=== PATIENT | female | born 1985 | race Caucasian/White ===

== ENCOUNTER 2021-10-06 18:11 | Emergency (ER) | payer MEDICAID, SELFPAY ==
--- NOTE | 2021-10-06 18:20 | ED_ITS ---
HPI - Psych General Chief Complaint: Psychiatric Symptoms <Tramaine Galvez MD - Last Filed: 10/06/21 23:17> Stated Complaint: ETOH, SI STATEMENTS, RESTRAINED PER EMS <Tramaine Galvez MD - Last Filed: 10/06/21 23:17> Time Seen by Provider: 10/06/21 18:20 <Tramaine Galvez MD - Last Filed: 10/06/21 23:17> Source: patient, EMS and police <Tramaine Galvez MD - Last Filed: 10/06/21 23:17> Mode of arrival: EMS <Tramaine Galvez MD - Last Filed: 10/06/21 23:17> Limitations: other (intoxication) <Tramaine Galvez MD - Last Filed: 10/06/21 23:17> History of Present Illness HPI Narrative: Police states she has been drinking heavily and threatening suicide. Last week had prepared to hang herself but did not go through it. patient states she is an alcoholic and goes into withdrawal <Tramaine Galvez MD - Last Filed: 10/06/21 23:17> MD complaint: suicidal ideation <Tramaine Galvez MD - Last Filed: 10/06/21 23:17> Onset (ago): week(s) <Tramaine Galvez MD - Last Filed: 10/06/21 23:17> Duration: constant <Tramaine Galvez MD - Last Filed: 10/06/21 23:17> History of same: Yes <Tramaine Galvez MD - Last Filed: 10/06/21 23:17> Exacerbating factors: alcohol <Tramaine Galvez MD - Last Filed: 10/06/21 23:17> Context: recent alcohol abuse <Tramaine Galvez MD - Last Filed: 10/06/21 23:17> Associated psychiatric symptoms: depression and suicidal ideation <Tramaine Galvez MD - Last Filed: 10/06/21 23:17> Related Data Home Medications: Previous Rx's Medication Instructions Recorded chlordiazepoxide HCl 25 mg capsule 25 mg PO Q8H PRN #6 cap 10/07/21 <Tramaine Galvez MD - Last Filed: 10/06/21 23:17> Allergies/Adverse Reactions: Allergies Allergy/AdvReac Type Severity Reaction Status Date / Time morphine [MORPHINE] Allergy Intermediate NAUSEA & Unverified 02/01/20 17:01 VOMITING fluoxetine [FLUOXETINE] AdvReac Intermediate AGITATION, Unverified 02/01/20 17:01 WEIGHT LOSS, MEMORY LOSS, SWEATING, THIRSTY <Tramaine Galvez MD - Last Filed: 10/06/21 23:17> Review of Systems Review of Systems: Yes Unobtainable due to mental status <Tramaine Galvez MD - Last Filed: 10/06/21 23:17> Neurologic: Denies Sensory deficit (Neuro) <Tramaine Galvez MD - Last F iled: 10/06/21 23:17> [facility] Social History Social History: Social History Alcohol intake: current Alcohol intake frequency: 3 or more drinks per day Patient Tobacco Use Status: Current everyday Tobacco user Use of substances other than those prescribed or required for medical reasons: No Advance Directives: No Advance Directives Information Provided: No Patient : No <Tramaine Galvez MD - Last Filed: 10/06/21 23:17> Physical Exam Vital Signs: Vital Signs: Last Vital Signs Temp 98.4 F 10/07/21 17:02 Pulse 102 H 10/07/21 20:19 Resp 20 10/07/21 17:02 BP 145/85 H 10/07/21 20:19 Pulse Ox 97 10/07/21 17:02 BMI result Body Mass Index 24.3 <Tramaine Galvez MD - Last Filed: 10/06/21 23:17> Vital Signs: Last Vital Signs Temp 98.4 F 10/07/21 17:02 Pulse 102 H 10/07/21 20:19 Resp 20 10/07/21 17:02 BP 145/85 H 10/07/21 20:19 Pulse Ox 97 10/07/21 17:02 BMI result Body Mass Index 24.3 <CHAVEZ Hill - Last Filed: 10/07/21 17:48> Vital Signs: Last Vital Signs Temp 98.4 F 10/07/21 17:02 Pulse 102 H 10/07/21 20:19 Resp 20 10/07/21 17:02 BP 145/85 H 10/07/21 20:19 Pulse Ox 97 10/07/21 17:02 BMI result Body Mass Index 24.3 <CHAVEZ Bowling - Last Filed: 10/07/21 20:30> Const: Other: intoxicated agitated <Tramaine Galvez MD - Last Filed: 10/06/21 23:17> Nutritional Appearance: average body habitus <Tramaine Galvez MD - Last Filed: 10/06/21 23:17> Orientation/consciousness: oriented to person and patient oriented x3 <Tramaine Galvez MD - Last Filed: 10/06/21 23:17> Limitations: altered mental status <Tramaine Galvez MD - Last Filed: 10/06/21 23:17> HEENT: Head: Yes normal to inspection <Tramaine Galvez MD - Last Filed: 10/06/21 23:17> Ears: external ears normal <Tramaine Galvez MD - Last Filed: 10/06/21 23:17> General nose exam: Normal external nose present <Tramaine Galvez MD - Last Filed: 10/06/21 23:17> Mouth: Normal oral and palatal mucosa present and oropharynx normal <Tramaine Galvez MD - Last Filed: 10/06/21 23:17> Throat: Yes posterior oropharynx normal <Tramaine Galvez MD - Last Filed: 10/06/21 23:17> Eyes: General: appearance normal, both eyes and all related structures <Tramaine Galvez MD - Last Filed: 10/06/21 23:17> Neck: Other: supple <Tramaine Galvez MD - Last Filed: 10/06/21 23:17> Neck: Yes normal visual inspection <Tramaine Galvez MD - Last Filed: 10/06/21 23:17> Chest: Chest palpation & inspection: normal inspection of the chest <Tramaine Galvez MD - Last Filed: 10/06/21 23:17> Resp: Auscultation: clear to auscultation bilaterally <Tramaine Galvez MD - Last Filed: 10/06/21 23:17> Cardio: Jugular venous distension: no JVD <Tramaine Galvez MD - Last Filed: 10/06/21 23:17> Rate: regular rate <Tramaine Galvez MD - Last Filed: 10/06/21 23:17> Rhythm: regular rhythm <Tramaine Galvez MD - Last Filed: 10/06/21 23:17> Heart sounds: S1 normal heart sound present and S2 normal heart sound present <Tramaine Galvez MD - Last Filed: 10/06/21 23:17> GI: Inspection: Yes normal to inspection <Tramaine Galvez MD - Last Filed: 10/06/21 23:17> Palpation (GI): Soft to palpation, nontender and No hepatosplenomegaly present <Tramaine Galvez MD - Last Filed: 10/06/21 23:17> Auscultation: normal bowel sounds <Tramaine Galvez MD - Last Filed: 10/06/21 23:17> : General: Yes no CVA tenderness <Tramaine Galvez MD - Last Filed: 10/06/21 23:17> Back/Spine/Pelvis: Back: no CVA tenderness <Tramaine Galvez MD - Last Filed: 10/06/21 23:17> Skin: General skin exam: no rashes or lesions noted <Tramaine Galvez MD - Last Filed: 10/06/21 23:17> Neuro: General: oriented to person and patient oriented x3 <Tramaine Galvez MD - Last Filed: 10/06/21 23:17> Cranial nerves: Yes CN's II-XII intact bilaterally <Tramaine Galvez MD - Last Filed: 10/06/21 23:17> Motor exam (neuro): 5/5 motor strength present throughout <Tramaine Galvez MD - Last Filed: 10/06/21 23:17> Sensory Exam: No Sensory deficit (Neuro) <Tramaine Galvez MD - Last Filed: 10/06/21 23:17> Extrem: General: Yes normal to inspection <Tramaine Galvez MD - Last Filed: 10/06/21 23:17> Psych: Other: intoxicated agitated <Tramaine Galvez MD - Last Filed: 10/06/21 23:17> Course Reevaluation(s) Reevaluation #1: Patient placed in physician observation at 11:16pm The indication for observation is that the patient needs more time to see if her depression improves after sobering up or she will need to be admitted. At this time the patient is well developed well nourished, lungs clear, CV RRR, abd nontender, neuro is intact, intoxicated <Tramaine Galvez MD - Last Filed: 10/06/21 23:17> Time: 23:17 <Tramaine Galvez MD - Last Filed: 10/06/21 23:17> Reevaluation #2: [id number]-- physician observation continued. patient was evaluated by CARE team Gali and was cleared for discharge. Patient denies SI/HI at this time, per care team had suicidal ideation of hanging herself a month ago. Referrals were made on patient's behalf, and she was provided with detox information. 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 Is mildly tremulous, denies other ETOH withdrawal symptoms. Is tachycardic to 102 with a blood pressure of 161/109. 25 mg of Librium given. CIWA=4 1800-- ED care transferred to CHAVEZ Rogers pending re-evaluation post Librium and anticipated discharge home <CHAVEZ Hill - Last Filed: 10/07/21 17:48> Time: 17:43 <CHAVEZ Hill - Last Filed: 10/07/21 17:48> Reevaluation #3: I personally re-evaluated patient, she is very tremulous, anxious, has tongue fasciculations. She is hypertensive, tachycardic which clinically correlate with autonomic dysfunction, she will be given an additional 25 mg of Librium as her see what is currently 5. Will re-evaluate patient and determine whether not phenobarb should be started. <CHAVEZ Bowling - Last Filed: 10/07/21 20:30> Time: 18:51 <CHAVEZ Bowling - Last Filed: 10/07/21 20:30> Additional Reevaluation(s): Significant improvement after 2nd dose of Librium, blood pressure is 150/85. Pulse of 94. Patient feels much better with significant improvement in tremors, anxiety. At this time is to monitor the patient in sure that she is improving. She will likely be discharged home with Librium. 2028 Patient continues to feel better and appears much better less tremulous after 2nd dose of Librium. This time patient will be discharged home with Librium q.8 hours I sent her a small supply as she should follow-up with her PCP and/or psychiatrist. Educated patient on black box warning of Librium, outlined these on her discharge. At this time I feel comfortable with discharge home she will follow up with outpatient providers, Behavioral Health Team. Comfortable discharge <CHAVEZ Bowling - Last Filed: 10/07/21 20:30> MDM - Psych Lab Data Result diagrams: : 10/06/21 21:15 10/06/21 21:15 <Tramaine Galvez MD - Last Filed: 10/06/21 23:17> Labs: Lab Results 10/06/21 10/06/21 10/06/21 Range/Units 20:36 21:15 21:15 WBC 8.2 (4.8-10.8) X10*3/uL RBC 4.76 (4.20-5.50) X10*6/uL Hgb 14.8 (12.0-16.0) g/dl Hct 44.6 (37.0-47.0) % MCV 93.7 (80.0-98.0) fL MCH 31.1 (27.0-33.0) pg MCHC 33.2 (31.0-35.0) g/dl RDW 14.1 (11.0-16.0) % Plt Count 365 (160-400) X10*3/uL MPV 9.2 L (9.4-12.3) fL Immature Gran % (Auto) 0.4 (0.0-0.4) % Neut % (Auto) 66.1 (45-73) % Lymph % (Auto) 24.1 (20-40) % [place] % (Auto) 6.9 (2-11) % Eos % (Auto) 1.2 (0-4) % Baso % (Auto) 1.3 (0-2) % Lymph # (Auto) 2.0 (1.2-4.9) X10*3/uL [place] # (Auto) 0.6 (0.1-1.2) X10*3/uL Eos # (Auto) 0.1 (0.0-0.4) X10*3/uL Baso # (Auto) 0.1 (0.0-0.2) X10*3/uL Abs Immat Gran (auto) 0.03 (0.00-0.03) X10*3/uL Absolute Neuts (auto) 5.4 (2.0-8.3) x10*3/uL Absolute Nucleated RBC 0.000 (0.0-0.012) X10*3/uL Nucleated RBC % (auto) 0.0 (0.0-0.2) /100WBC Sodium 150 H (135-145) mmol/L Potassium 4.4 (3.3-5.1) mmol/L Chloride 107 (96-108) mmol/L Carbon Dioxide 26 (22-29) mmol/L Anion Gap 21 H (12-20) BUN 7 L (9-16) mg/dL Creatinine 0.80 (0.5-1.4) mg/dL Estim Creat Clear Calc 98.9 Estimated GFR > 60 Random Glucose 86 (60-115) mg/dL Calcium 8.9 (8.4-10.2) mg/dL Total Bilirubin 0.3 (0.0-1.0) mg/dL AST 49 H (5-31) U/L ALT 57 H (0-31) U/L Alkaline Phosphatase 49 (39-117) U/L Total Protein 7.6 (6.5-8.0) g/dL Albumin 4.4 (3.5-5.0) g/dL Urine Color Urine Appearance Urine pH (5.0-8.0) Ur Specific [place] (1.005-1.025) Urine Protein (NEG-TRACE) MG/DL Urine Glucose (UA) (NEG) MG/DL Urine Ketones (NEG) MG/DL Urine Blood (NEG) Urine Nitrite (NEG) Ur Leukocyte Esterase (NEG) Urine Test (NEGATIVE) Salicylates < 5.0 L (15-30) mg/dL Urine Opiates Screen (Not Detect) Urine Fentanyl Screen (Not Detect) Acetaminophen < 1 (<30) mcg/mL Ur Barbiturates Screen (Not Detect) Ur Phencyclidine Scrn (Not Detect) Ur Amphetamines Screen (Not Detect) U Benzodiazepines Scrn (Not Detect) Urine Cocaine Screen (Not Detect) U Marijuana (THC) Screen (Not Detect) Ethyl Alcohol mg/dL COVID-19 (ALISTAIR) Negative (Negative) COVID-19 Clin Com See Note 10/06/21 10/07/21 10/07/21 Range/Units 21:15 09:28 09:28 WBC (4.8-10.8) X10*3/uL RBC (4.20-5.50) X10*6/uL Hgb (12.0-16.0) g/dl Hct (37.0-47.0) % MCV (80.0-98.0) fL MCH (27.0-33.0) pg MCHC (31.0-35.0) g/dl RDW (11.0-16.0) % Plt Count (160-400) X10*3/uL MPV (9.4-12.3) fL Immature Gran % (Auto) (0.0-0.4) % Neut % (Auto) (45-73) % Lymph % (Auto) (20-40) % [place] % (Auto) (2-11) % Eos % (Auto) (0-4) % Baso % (Auto) (0-2) % Lymph # (Auto) (1.2-4.9) X10*3/uL [place] # (Auto) (0.1-1.2) X10*3/uL Eos # (Auto) (0.0-0.4) X10*3/uL Baso # (Auto) (0.0-0.2) X10*3/uL Abs Immat Gran (auto) (0.00-0.03) X10*3/uL Absolute Neuts (auto) (2.0-8.3) x10*3/uL Absolute Nucleated RBC (0.0-0.012) X10*3/uL Nucleated RBC % (auto) (0.0-0.2) /100WBC Sodium (135-145) mmol/L Potassium (3.3-5.1) mmol/L Chloride (96-108) mmol/L Carbon Dioxide (22-29) mmol/L Anion Gap (12-20) BUN (9-16) mg/dL Creatinine (0.5-1.4) mg/dL Estim Creat Clear Calc Estimated GFR Random Glucose (60-115) mg/dL Calcium (8.4-10.2) mg/dL Total Bilirubin (0.0-1.0) mg/dL AST (5-31) U/L ALT (0-31) U/L Alkaline Phosphatase (39-117) U/L Total Protein (6.5-8.0) g/dL Albumin (3.5-5.0) g/dL Urine Color YELLOW Urine Appearance CLEAR Urine pH 6.0 (5.0-8.0) Ur Specific [place] 1.020 (1.005-1.025) Urine Protein NEG (NEG-TRACE) MG/DL Urine Glucose (UA) NEG (NEG) MG/DL Urine Ketones NEG (NEG) MG/DL Urine Blood NEG (NEG) Urine Nitrite NEG (NEG) Ur Leukocyte Esterase NEG (NEG) Urine Test (NEGATIVE) Salicylates (15-30) mg/dL Urine Opiates Screen Not Detected (Not Detect) Urine Fentanyl Screen Not Detected (Not Detect) Acetaminophen (<30) mcg/mL Ur Barbiturates Screen Not Detected (Not Detect) Ur Phencyclidine Scrn Not Detected (Not Detect) Ur Amphetamines Screen Not Detected (Not Detect) U Benzodiazepines Scrn Not Detected (Not Detect) Urine Cocaine Screen Not Detected (Not Detect) U Marijuana (THC) Screen Not Detected (Not Detect) Ethyl Alcohol 505 H* mg/dL COVID-19 (ALISTAIR) (Negative) COVID-19 Clin Com 10/07/21 Range/Units 09:29 WBC (4.8-10.8) X10*3/uL RBC (4.20-5.50) X10*6/uL Hgb (12.0-16.0) g/dl Hct (37.0-47.0) % MCV (80.0-98.0) fL MCH (27.0-33.0) pg MCHC (31.0-35.0) g/dl RDW (11.0-16.0) % Plt Count (160-400) X10*3/uL MPV (9.4-12.3) fL Immature Gran % (Auto) (0.0-0.4) % Neut % (Auto) (45-73) % Lymph % (Auto) (20-40) % [place] % (Auto) (2-11) % Eos % (Auto) (0-4) % Baso % (Auto) (0-2) % Lymph # (Auto) (1.2-4.9) X10*3/uL [place] # (Auto) (0.1-1.2) X10*3/uL Eos # (Auto) (0.0-0.4) X10*3/uL Baso # (Auto) (0.0-0.2) X10*3/uL Abs Immat Gran (auto) (0.00-0.03) X10*3/uL Absolute Neuts (auto) (2.0-8.3) x10*3/uL Absolute Nucleated RBC (0.0-0.012) X10*3/uL Nucleated RBC % (auto) (0.0-0.2) /100WBC Sodium (135-145) mmol/L Potassium (3.3-5.1) mmol/L Chloride (96-108) mmol/L Carbon Dioxide (22-29) mmol/L Anion Gap (12-20) BUN (9-16) mg/dL Creatinine (0.5-1.4) mg/dL Estim Creat Clear Calc Estimated GFR Random Glucose (60-115) mg/dL Calcium (8.4-10.2) mg/dL Total Bilirubin (0.0-1.0) mg/dL AST (5-31) U/L ALT (0-31) U/L Alkaline Phosphatase (39-117) U/L Total Protein (6.5-8.0) g/dL Albumin (3.5-5.0) g/dL Urine Color Urine Appearance Urine pH (5.0-8.0) Ur Specific [place] (1.005-1.025) Urine Protein (NEG-TRACE) MG/DL Urine Glucose (UA) (NEG) MG/DL Urine Ketones (NEG) MG/DL Urine Blood (NEG) Urine Nitrite (NEG) Ur Leukocyte Esterase (NEG) Urine Test NEGATIVE (NEGATIVE) Salicylates (15-30) mg/dL Urine Opiates Screen (Not Detect) Urine Fentanyl Screen (Not Detect) Acetaminophen (<30) mcg/mL Ur Barbiturates Screen (Not Detect) Ur Phencyclidine Scrn (Not Detect) Ur Amphetamines Screen (Not Detect) U Benzodiazepines Scrn (Not Detect) Urine Cocaine Screen (Not Detect) U Marijuana (THC) Screen (Not Detect) Ethyl Alcohol mg/dL COVID-19 (ALISTAIR) (Negative) COVID-19 Clin Com <Tramaine Galvez MD - Last Filed: 10/06/21 23:17> Lab Results 10/06/21 10/06/21 10/06/21 Range/Units 20:36 21:15 21:15 WBC 8.2 (4.8-10.8) X10*3/uL RBC 4.76 (4.20-5.50) X10*6/uL Hgb 14.8 (12.0-16.0) g/dl Hct 44.6 (37.0-47.0) % MCV 93.7 (80.0-98.0) fL MCH 31.1 (27.0-33.0) pg MCHC 33.2 (31.0-35.0) g/dl RDW 14.1 (11.0-16.0) % Plt Count 365 (160-400) X10*3/uL MPV 9.2 L (9.4-12.3) fL Immature Gran % (Auto) 0.4 (0.0-0.4) % Neut % (Auto) 66.1 (45-73) % Lymph % (Auto) 24.1 (20-40) % [place] % (Auto) 6.9 (2-11) % Eos % (Auto) 1.2 (0-4) % Baso % (Auto) 1.3 (0-2) % Lymph # (Auto) 2.0 (1.2-4.9) X10*3/uL [place] # (Auto) 0.6 (0.1-1.2) X10*3/uL Eos # (Auto) 0.1 (0.0-0.4) X10*3/uL Baso # (Auto) 0.1 (0.0-0.2) X10*3/uL Abs Immat Gran (auto) 0.03 (0.00-0.03) X10*3/uL Absolute Neuts (auto) 5.4 (2.0-8.3) x10*3/uL Absolute Nucleated RBC 0.000 (0.0-0.012) X10*3/uL Nucleated RBC % (auto) 0.0 (0.0-0.2) /100WBC Sodium 150 H (135-145) mmol/L Potassium 4.4 (3.3-5.1) mmol/L Chloride 107 (96-108) mmol/L Carbon Dioxide 26 (22-29) mmol/L Anion Gap 21 H (12-20) BUN 7 L (9-16) mg/dL Creatinine 0.80 (0.5-1.4) mg/dL Estim Creat Clear Calc 98.9 Estimated GFR > 60 Random Glucose 86 (60-115) mg/dL Calcium 8.9 (8.4-10.2) mg/dL Total Bilirubin 0.3 (0.0-1.0) mg/dL AST 49 H (5-31) U/L ALT 57 H (0-31) U/L Alkaline Phosphatase 49 (39-117) U/L Total Protein 7.6 (6.5-8.0) g/dL Albumin 4.4 (3.5-5.0) g/dL Urine Color Urine Appearance Urine pH (5.0-8.0) Ur Specific [place] (1.005-1.025) Urine Protein (NEG-TRACE) MG/DL Urine Glucose (UA) (NEG) MG/DL Urine Ketones (NEG) MG/DL Urine Blood (NEG) Urine Nitrite (NEG) Ur Leukocyte Esterase (NEG) Urine Test (NEGATIVE) Salicylates < 5.0 L (15-30) mg/dL Urine Opiates Screen (Not Detect) Urine Fentanyl Screen (Not Detect) Acetaminophen < 1 (<30) mcg/mL Ur Barbiturates Screen (Not Detect) Ur Phencyclidine Scrn (Not Detect) Ur Amphetamines Screen (Not Detect) U Benzodiazepines Scrn (Not Detect) Urine Cocaine Screen (Not Detect) U Marijuana (THC) Screen (Not Detect) Ethyl Alcohol mg/dL COVID-19 (ALISTAIR) Negative (Negative) COVID-19 Clin Com See Note 10/06/21 10/07/21 10/07/21 Range/Units 21:15 09:28 09:28 WBC (4.8-10.8) X10*3/uL RBC (4.20-5.50) X10*6/uL Hgb (12.0-16.0) g/dl Hct (37.0-47.0) % MCV (80.0-98.0) fL MCH (27.0-33.0) pg MCHC (31.0-35.0) g/dl RDW (11.0-16.0) % Plt Count (160-400) X10*3/uL MPV (9.4-12.3) fL Immature Gran % (Auto) (0.0-0.4) % Neut % (Auto) (45-73) % Lymph % (Auto) (20-40) % [place] % (Auto) (2-11) % Eos % (Auto) (0-4) % Baso % (Auto) (0-2) % Lymph # (Auto) (1.2-4.9) X10*3/uL [place] # (Auto) (0.1-1.2) X10*3/uL Eos # (Auto) (0.0-0.4) X10*3/uL Baso # (Auto) (0.0-0.2) X10*3/uL Abs Immat Gran (auto) (0.00-0.03) X10*3/uL Absolute Neuts (auto) (2.0-8.3) x10*3/uL Absolute Nucleated RBC (0.0-0.012) X10*3/uL Nucleated RBC % (auto) (0.0-0.2) /100WBC Sodium (135-145) mmol/L Potassium (3.3-5.1) mmol/L Chloride (96-108) mmol/L Carbon Dioxide (22-29) mmol/L Anion Gap (12-20) BUN (9-16) mg/dL Creatinine (0.5-1.4) mg/dL Estim Creat Clear Calc Estimated GFR Random Glucose (60-115) mg/dL Calcium (8.4-10.2) mg/dL Total Bilirubin (0.0-1.0) mg/dL AST (5-31) U/L ALT (0-31) U/L Alkaline Phosphatase (39-117) U/L Total Protein (6.5-8.0) g/dL Albumin (3.5-5.0) g/dL Urine Color YELLOW Urine Appearance CLEAR Urine pH 6.0 (5.0-8.0) Ur Specific [place] 1.020 (1.005-1.025) Urine Protein NEG (NEG-TRACE) MG/DL Urine Glucose (UA) NEG (NEG) MG/DL Urine Ketones NEG (NEG) MG/DL Urine Blood NEG (NEG) Urine Nitrite NEG (NEG) Ur Leukocyte Esterase NEG (NEG) Urine Test (NEGATIVE) Salicylates (15-30) mg/dL Urine Opiates Screen Not Detected (Not Detect) Urine Fentanyl Screen Not Detected (Not Detect) Acetaminophen (<30) mcg/mL Ur Barbiturates Screen Not Detected (Not Detect) Ur Phencyclidine Scrn Not Detected (Not Detect) Ur Amphetamines Screen Not Detected (Not Detect) U Benzodiazepines Scrn Not Detected (Not Detect) Urine Cocaine Screen Not Detected (Not Detect) U Marijuana (THC) Screen Not Detected (Not Detect) Ethyl Alcohol 505 H* mg/dL COVID-19 (ALISTAIR) (Negative) COVID-19 Clin Com 10/07/21 Range/Units 09:29 WBC (4.8-10.8) X10*3/uL RBC (4.20-5.50) X10*6/uL Hgb (12.0-16.0) g/dl Hct (37.0-47.0) % MCV (80.0-98.0) fL MCH (27.0-33.0) pg MCHC (31.0-35.0) g/dl RDW (11.0-16.0) % Plt Count (160-400) X10*3/uL MPV (9.4-12.3) fL Immature Gran % (Auto) (0.0-0.4) % Neut % (Auto) (45-73) % Lymph % (Auto) (20-40) % [place] % (Auto) (2-11) % Eos % (Auto) (0-4) % Baso % (Auto) (0-2) % Lymph # (Auto) (1.2-4.9) X10*3/uL [place] # (Auto) (0.1-1.2) X10*3/uL Eos # (Auto) (0.0-0.4) X10*3/uL Baso # (Auto) (0.0-0.2) X10*3/uL Abs Immat Gran (auto) (0.00-0.03) X10*3/uL Absolute Neuts (auto) (2.0-8.3) x10*3/uL Absolute Nucleated RBC (0.0-0.012) X10*3/uL Nucleated RBC % (auto) (0.0-0.2) /100WBC Sodium (135-145) mmol/L Potassium (3.3-5.1) mmol/L Chloride (96-108) mmol/L Carbon Dioxide (22-29) mmol/L Anion Gap (12-20) BUN (9-16) mg/dL Creatinine (0.5-1.4) mg/dL Estim Creat Clear Calc Estimated GFR Random Glucose (60-115) mg/dL Calcium (8.4-10.2) mg/dL Total Bilirubin (0.0-1.0) mg/dL AST (5-31) U/L ALT (0-31) U/L Alkaline Phosphatase (39-117) U/L Total Protein (6.5-8.0) g/dL Albumin (3.5-5.0) g/dL Urine Color Urine Appearance Urine pH (5.0-8.0) Ur Specific [place] (1.005-1.025) Urine Protein (NEG-TRACE) MG/DL Urine Glucose (UA) (NEG) MG/DL Urine Ketones (NEG) MG/DL Urine Blood (NEG) Urine Nitrite (NEG) Ur Leukocyte Esterase (NEG) Urine Test NEGATIVE (NEGATIVE) Salicylates (15-30) mg/dL Urine Opiates Screen (Not Detect) Urine Fentanyl Screen (Not Detect) Acetaminophen (<30) mcg/mL Ur Barbiturates Screen (Not Detect) Ur Phencyclidine Scrn (Not Detect) Ur Amphetamines Screen (Not Detect) U Benzodiazepines Scrn (Not Detect) Urine Cocaine Screen (Not Detect) U Marijuana (THC) Screen (Not Detect) Ethyl Alcohol mg/dL COVID-19 (ALISTAIR) (Negative) COVID-19 Clin Com <CHAVEZ Hill - Last Filed: 10/07/21 17:48> Lab Results 10/06/21 10/06/21 10/06/21 Range/Units 20:36 21:15 21:15 WBC 8.2 (4.8-10.8) X10*3/uL RBC 4.76 (4.20-5.50) X10*6/uL Hgb 14.8 (12.0-16.0) g/dl Hct 44.6 (37.0-47.0) % MCV 93.7 (80.0-98.0) fL MCH 31.1 (27.0-33.0) pg MCHC 33.2 (31.0-35.0) g/dl RDW 14.1 (11.0-16.0) % Plt Count 365 (160-400) X10*3/uL MPV 9.2 L (9.4-12.3) fL Immature Gran % (Auto) 0.4 (0.0-0.4) % Neut % (Auto) 66.1 (45-73) % Lymph % (Auto) 24.1 (20-40) % [place] % (Auto) 6.9 (2-11) % Eos % (Auto) 1.2 (0-4) % Baso % (Auto) 1.3 (0-2) % Lymph # (Auto) 2.0 (1.2-4.9) X10*3/uL [place] # (Auto) 0.6 (0.1-1.2) X10*3/uL Eos # (Auto) 0.1 (0.0-0.4) X10*3/uL Baso # (Auto) 0.1 (0.0-0.2) X10*3/uL Abs Immat Gran (auto) 0.03 (0.00-0.03) X10*3/uL Absolute Neuts (auto) 5.4 (2.0-8.3) x10*3/uL Absolute Nucleated RBC 0.000 (0.0-0.012) X10*3/uL Nucleated RBC % (auto) 0.0 (0.0-0.2) /100WBC Sodium 150 H (135-145) mmol/L Potassium 4.4 (3.3-5.1) mmol/L Chloride 107 (96-108) mmol/L Carbon Dioxide 26 (22-29) mmol/L Anion Gap 21 H (12-20) BUN 7 L (9-16) mg/dL Creatinine 0.80 (0.5-1.4) mg/dL Estim Creat Clear Calc 98.9 Estimated GFR > 60 Random Glucose 86 (60-115) mg/dL Calcium 8.9 (8.4-10.2) mg/dL Total Bilirubin 0.3 (0.0-1.0) mg/dL AST 49 H (5-31) U/L ALT 57 H (0-31) U/L Alkaline Phosphatase 49 (39-117) U/L Total Protein 7.6 (6.5-8.0) g/dL Albumin 4.4 (3.5-5.0) g/dL Urine Color Urine Appearance Urine pH (5.0-8.0) Ur Specific [place] (1.005-1.025) Urine Protein (NEG-TRACE) MG/DL Urine Glucose (UA) (NEG) MG/DL Urine Ketones (NEG) MG/DL Urine Blood (NEG) Urine Nitrite (NEG) Ur Leukocyte Esterase (NEG) Urine Test (NEGATIVE) Salicylates < 5.0 L (15-30) mg/dL Urine Opiates Screen (Not Detect) Urine Fentanyl Screen (Not Detect) Acetaminophen < 1 (<30) mcg/mL Ur Barbiturates Screen (Not Detect) Ur Phencyclidine Scrn (Not Detect) Ur Amphetamines Screen (Not Detect) U Benzodiazepines Scrn (Not Detect) Urine Cocaine Screen (Not Detect) U Marijuana (THC) Screen (Not Detect) Ethyl Alcohol mg/dL COVID-19 (ALISTAIR) Negative (Negative) COVID-19 Clin Com See Note 10/06/21 10/07/21 10/07/21 Range/Units 21:15 09:28 09:28 WBC (4.8-10.8) X10*3/uL RBC (4.20-5.50) X10*6/uL Hgb (12.0-16.0) g/dl Hct (37.0-47.0) % MCV (80.0-98.0) fL MCH (27.0-33.0) pg MCHC (31.0-35.0) g/dl RDW (11.0-16.0) % Plt Count (160-400) X10*3/uL MPV (9.4-12.3) fL Immature Gran % (Auto) (0.0-0.4) % Neut % (Auto) (45-73) % Lymph % (Auto) (20-40) % [place] % (Auto) (2-11) % Eos % (Auto) (0-4) % Baso % (Auto) (0-2) % Lymph # (Auto) (1.2-4.9) X10*3/uL [place] # (Auto) (0.1-1.2) X10*3/uL Eos # (Auto) (0.0-0.4) X10*3/uL Baso # (Auto) (0.0-0.2) X10*3/uL Abs Immat Gran (auto) (0.00-0.03) X10*3/uL Absolute Neuts (auto) (2.0-8.3) x10*3/uL Absolute Nucleated RBC (0.0-0.012) X10*3/uL Nucleated RBC % (auto) (0.0-0.2) /100WBC Sodium (135-145) mmol/L Potassium (3.3-5.1) mmol/L Chloride (96-108) mmol/L Carbon Dioxide (22-29) mmol/L Anion Gap (12-20) BUN (9-16) mg/dL Creatinine (0.5-1.4) mg/dL Estim Creat Clear Calc Estimated GFR Random Glucose (60-115) mg/dL Calcium (8.4-10.2) mg/dL Total Bilirubin (0.0-1.0) mg/dL AST (5-31) U/L ALT (0-31) U/L Alkaline Phosphatase (39-117) U/L Total Protein (6.5-8.0) g/dL Albumin (3.5-5.0) g/dL Urine Color YELLOW Urine Appearance CLEAR Urine pH 6.0 (5.0-8.0) Ur Specific [place] 1.020 (1.005-1.025) Urine Protein NEG (NEG-TRACE) MG/DL Urine Glucose (UA) NEG (NEG) MG/DL Urine Ketones NEG (NEG) MG/DL Urine Blood NEG (NEG) Urine Nitrite NEG (NEG) Ur Leukocyte Esterase NEG (NEG) Urine Test (NEGATIVE) Salicylates (15-30) mg/dL Urine Opiates Screen Not Detected (Not Detect) Urine Fentanyl Screen Not Detected (Not Detect) Acetaminophen (<30) mcg/mL Ur Barbiturates Screen Not Detected (Not Detect) Ur Phencyclidine Scrn Not Detected (Not Detect) Ur Amphetamines Screen Not Detected (Not Detect) U Benzodiazepines Scrn Not Detected (Not Detect) Urine Cocaine Screen Not Detected (Not Detect) U Marijuana (THC) Screen Not Detected (Not Detect) Ethyl Alcohol 505 H* mg/dL COVID-19 (ALISTAIR) (Negative) COVID-19 Clin Com 10/07/21 Range/Units 09:29 WBC (4.8-10.8) X10*3/uL RBC (4.20-5.50) X10*6/uL Hgb (12.0-16.0) g/dl Hct (37.0-47.0) % MCV (80.0-98.0) fL MCH (27.0-33.0) pg MCHC (31.0-35.0) g/dl RDW (11.0-16.0) % Plt Count (160-400) X10*3/uL MPV (9.4-12.3) fL Immature Gran % (Auto) (0.0-0.4) % Neut % (Auto) (45-73) % Lymph % (Auto) (20-40) % [place] % (Auto) (2-11) % Eos % (Auto) (0-4) % Baso % (Auto) (0-2) % Lymph # (Auto) (1.2-4.9) X10*3/uL [place] # (Auto) (0.1-1.2) X10*3/uL Eos # (Auto) (0.0-0.4) X10*3/uL Baso # (Auto) (0.0-0.2) X10*3/uL Abs Immat Gran (auto) (0.00-0.03) X10*3/uL Absolute Neuts (auto) (2.0-8.3) x10*3/uL Absolute Nucleated RBC (0.0-0.012) X10*3/uL Nucleated RBC % (auto) (0.0-0.2) /100WBC Sodium (135-145) mmol/L Potassium (3.3-5.1) mmol/L Chloride (96-108) mmol/L Carbon Dioxide (22-29) mmol/L Anion Gap (12-20) BUN (9-16) mg/dL Creatinine (0.5-1.4) mg/dL Estim Creat Clear Calc Estimated GFR Random Glucose (60-115) mg/dL Calcium (8.4-10.2) mg/dL Total Bilirubin (0.0-1.0) mg/dL AST (5-31) U/L ALT (0-31) U/L Alkaline Phosphatase (39-117) U/L Total Protein (6.5-8.0) g/dL Albumin (3.5-5.0) g/dL Urine Color Urine Appearance Urine pH (5.0-8.0) Ur Specific [place] (1.005-1.025) Urine Protein (NEG-TRACE) MG/DL Urine Glucose (UA) (NEG) MG/DL Urine Ketones (NEG) MG/DL Urine Blood (NEG) Urine Nitrite (NEG) Ur Leukocyte Esterase (NEG) Urine Test NEGATIVE (NEGATIVE) Salicylates (15-30) mg/dL Urine Opiates Screen (Not Detect) Urine Fentanyl Screen (Not Detect) Acetaminophen (<30) mcg/mL Ur Barbiturates Screen (Not Detect) Ur Phencyclidine Scrn (Not Detect) Ur Amphetamines Screen (Not Detect) U Benzodiazepines Scrn (Not Detect) Urine Cocaine Screen (Not Detect) U Marijuana (THC) Screen (Not Detect) Ethyl Alcohol mg/dL COVID-19 (ALISTAIR) (Negative) COVID-19 Clin Com <CHAVEZ Bowling - Last Filed: 10/07/21 20:30> Critical Care Time Critical Care Time Critical Care Time: No <CHAVEZ Bowling - Last Filed: 10/07/21 20:30> Discharge Plan Discharge Clinical Impression: Alcohol intoxication <Tramaine Galvez MD - Last Filed: 10/06/21 23:17> Patient Disposition: Home, Self-Care <Tramaine Galvez MD - Last Filed: 10/06/21 23:17> Instructions: Abuse of Alcohol (DC), Alcohol Withdrawal (DC), Alcohol Use Disorder (ED) <Tramaine Galvez MD - Last Filed: 10/06/21 23:17> Additional Instructions: your cleared for discharge by our care team. Continue home medications. Please follow-up with her providers. Your given information for detox as well as other resources, please give them a try. If you have thoughts of hurting herself or others issues return to the emergency department. avoid alcohol and drug use as can kill you. Take your medications as prescribed. Follow-up with your primary care provider this week. Follow-up with the [facility] health team Return to the emergency department with new or worsening symptoms. Such as fevers, chills, chest pain, shortness of breath, nausea, vomiting, dizziness, headache, vision changes, lethargy, suicidal ideation, homicidal ideation, anxiety, depression, seizure-like activity or seizure In case of emergency call 911 Librium box warning/side effects that you should be made aware of Risks from concomitant use of benzodiazepines and opioids: Concomitant use of benzodiazepines and opioids may result in profound sedation, respiratory depression, coma, and . Abuse, misuse, and addiction: The use of benzodiazepines, including chlordiazepoxide, exposes users to risks of abuse, misuse, and addiction, which can lead to overdose or . Dependence and withdrawal reactions: The continued use of benzodiazepines, including chlordiazepoxide, may lead to clinically significant physical dependence. The risks of dependence and withdrawal increase with longer treatment duration and higher daily dose. <Tramaine Galvez MD - Last Filed: 10/06/21 23:17> Prescriptions: New chlordiazepoxide HCl 25 mg capsule 25 mg PO Q8H PRN (Reason: alcohol withdrawal) Qty: 6 0RF <Tramaine Galvez MD - Last Filed: 10/06/21 23:17> Referrals: [facility]Provider Group] Physician,Unknown J [Primary Care Provider] - <Tramaine Galvez MD - Last Filed: 10/06/21 23:17> Stand Alone Forms: Work/School Release <Tramaine Galvez MD - Last Filed: 10/06/21 23:17>
[2021-10-06 18:33] VITALS: BMI 24.3
[2021-10-06] MEDS: Haloperidol Lactate 5 MG/ML VIAL IM (20:35)
[2021-10-06] MEDS: LORazepam 2 MG/ML VIAL IM (20:35)
[2021-10-06 20:55] LABS: IDNOW Serial# 16C4AD1C
[2021-10-06 20:56] LABS: COVID-19 Test Negative (Negative)
[2021-10-06 22:27] LABS: MANUAL DIFF FLAG NO
[2021-10-06 22:28] LABS: Basophils Absolute Auto 0.1 X10*3/uL (0.0-0.2); Basophils Percent Auto 1.3 % (0-2); Eosinophils Absolute Auto 0.1 X10*3/uL (0.0-0.4); Eosinophils Percent Auto 1.2 % (0-4); Hematocrit 44.6 % (37.0-47.0); Hemoglobin 14.8 g/dl (12.0-16.0); Imm Gran Abs Auto 0.03 X10*3/uL (0.00-0.03); Imm Gran Pct Auto 0.4 % (0.0-0.4); Lymphocytes Percent Auto 24.1 % (20-40); Mean Corpuscular HGB Conc 33.2 g/dl (31.0-35.0); Mean Corpuscular Hemoglobin 31.1 pg (27.0-33.0); Mean Corpuscular Volume 93.7 fL (80.0-98.0); Mean Platelet Volume 9.2 fL (9.4-12.3); Monocytes Absolute Auto 0.6 X10*3/uL (0.1-1.2); Monocytes Percent Auto 6.9 % (2-11); Neutrophils Absolute Auto 5.4 x10*3/uL (2.0-8.3); Neutrophils Percent Auto 66.1 % (45-73); Platelet Count 365 X10*3/uL (160-400); Red Blood Count 4.76 X10*6/uL (4.20-5.50); Red Cell Distribution Width 14.1 % (11.0-16.0); White Blood Count 8.2 X10*3/uL (4.8-10.8)
[2021-10-06 22:47] LABS: Ethanol 505 mg/dL; Total Protein 7.6 g/dL (6.5-8.0)
[2021-10-06 22:59] LABS: Acetaminophen LAB < 1 mcg/mL (<30); Alanine Aminotransferase 57 U/L (0-31); Albumin Level 4.4 g/dL (3.5-5.0); Alkaline Phosphatase 49 U/L (39-117); Anion Gap 21 (12-20); Aspartate Amino Transferase 49 U/L (5-31); Bilirubin Total 0.3 mg/dL (0.0-1.0); Blood Urea Nitrogen 7 mg/dL (9-16); Calcium 8.9 mg/dL (8.4-10.2); Carbon Dioxide 26 mmol/L (22-29); Chloride 107 mmol/L (96-108); Creatinine Clr Calc Pharmacy 98.9; Estimated Glomerular Filt Rate > 60; Glucose Random 86 mg/dL (60-115); Potassium 4.4 mmol/L (3.3-5.1); Salicylate < 5.0 mg/dL (15-30); Sodium 150 mmol/L (135-145)
--- NOTE | 2021-10-06 23:41 | PC.NURSE ---
Patient was transferred from main ED to ED POD, patient was requesting medication for her withdrawal and for sleep in very disruptive manner even threatening staff member, provider notified/ordered Ativan 2 mg IM and Haldol 5 mg IM as per patient request/administered as ordered at 2034/patient compliant/ positive effect, patient will be evaluated by care team in the morning, BAL 505 @ 2114, will continue to monitor.
[2021-10-07] VITALS (7 sets, daily range): BP systolic 145–173; BP diastolic 85–110; PULSE 94–103; RESP 16–20; TEMP 36.6–37.1; O2SAT 94–97
--- NOTE | 2021-10-07 06:15 | PC.NURSE ---
Patient slept though the night, no distress observed/reported, pending urine sample, will continue to monitor.
[2021-10-07] MEDS: LORazepam 1 MG TABLET 2 MG PO ×3 (07:59→15:40)
[2021-10-07 09:37] LABS: Appearance Urine CLEAR; Color Urine YELLOW; Glucose Urine UA NEG (NEG); Leukocyte Esterase Urine NEG (NEG); Nitrite Urine NEG (NEG); Urine Blood NEG (NEG); Urine Ketones NEG (NEG); Urine Protein NEG (NEG-TRACE)
[2021-10-07 09:40] LABS: UPreg QC Valid YES; Urine Pregnancy NEGATIVE (NEGATIVE)
--- NOTE | 2021-10-07 14:01 | MHC.RECOVRN ---
Addendum entered by Radha Ramirez 10/07/21 15:10: Pt also reported hx Vivitrol, states It makes me drink more. Pt educated regarding other medications for AUD, pt plans to follow up with PCP. Original Note: Met with pt in [facility] to discuss substance use and desire for AUD treatment. Upon entering pts room, pt laying in bed, eyes closed, easily awoken. Pt is currently experiencing alcohol withdrawal-symptoms including tremors and diaphoresis. Pt reports drinking Truly, a 12 pack daily, x 4 days. Prior to 4 days ago, pt had not had a drink in a couple days. Pt reports this pattern has occurred many times over the past 3 months. Pt reports that when not drinking, pt does experience withdrawal. Pt has been to ATS in the past, was [facility] to [facility]. Pt reports this was not a pleasant experience. Pt also has engaged with IOP in the past and would like to be referred again. Pt declines ATS at this time. Pt wishes to dc home and follow up outpatient with supports and services. T/w encouraged pt to reconsider ATS due to current withdrawal symptoms. Pt denies hx seizures however was educated regarding the risks associated with withdrawal at home. Pt denies SI/HI/AH/VH. Discussed with CARE Team.
[2021-10-07 16:14] LABS: Amphetamine Screen Urine Not Detected (Not Detect); Barbiturates, Urine Not Detected (Not Detect); Benzodiazepines Screen Urine Not Detected (Not Detect); Cannabinoid Screen Urine Not Detected (Not Detect); Cocaine Screen Urine Not Detected (Not Detect); Fentanyl, urine Not Detected (Not Detect); Opiate Screen Urine Not Detected (Not Detect); Phencyclidine Screen Urine Not Detected (Not Detect)
--- NOTE | 2021-10-07 17:24 | MHC.CARE ---
CARE Team met with patient in [facility] for risk assessment, she was brought to the ED yesterday by ambulance after her mother called for a wellbeing check in response to her daughter calling her making suicidal statements. Patient was under the influence of alcohol (BAL of 504) yesterday and today was medically cleared and sober. [place] [facility] [place] previous similar presentations in 2019 and 2019 and was admitted to once. Has been to detox and in treatment under Section 35, briefly attended [facility] and [facility]. At this time patient emphatically denied suicidal ideation, plan or intention. She reported that one month ago she considered hanging herself but did not act on that plan, has no history of attempts or gestures. Patient admitted to feelings of hopelessness but did not want to discuss a inpatient psychiatric care. She identified her two year-old dog as her lifeline and reason for living, in addition she has a supportive family and partner that is in recovery. Patient declined detox but said she would consider [facility] because it is virtual and does not have to leave her dog. She requested information about Medication Assisted Treatment and spoke to the Recovery Team about this.? Lengthy call with patient?s mother who has been desperately trying to help her daughter but is disabled (post stroke is blind and has mobility problems), spoke about how traumatic is was for patient having lost her father and then mother becoming seriously ill. She expressed concern that her daughter frequently says she has nothing to live for, is distressed by the world news, has no day structure and drinks to excess, is worried she will act on this while intoxicated. Explained that the criteria for a psychiatric admission is limited and patient is not voluntary or in imminent danger outside of her alcohol use, could not be admitted on a Section 12B. Encouraged patient?s mother to seek support from [facility] or other other similar groups.? Unable to reach patient?s boyfriend Freight Inspector UMER Chávez and ED provider CHAVEZ Hill consulted and in agreement with plan for discharge with treatment recommendations and referrals.? CARE Team will refer patient to [facility] for individual therapy, refer her to [facility], provide information about MAT and IOP, will follow up with her by phone within 24-48hr.
[2021-10-07] MEDS: chlordiazePOXIDE HCl 25 MG CAPSULE PO ×2 (17:29→18:48)
--- NOTE | 2021-10-07 17:32 | MHC.CARE ---
For clarification, patient's mother had been unable to get ahold of her daughter for two days and was worried so asked patient's boyfriend to go check on her, he found her severely intoxicated and called 911 for medical treatment.
--- NOTE | 2021-10-08 10:33 | MHC.RECOVRN ---
Late entry: Prior to pts dc, pt requested to speak to t/w again regarding MICHEL. Discussed all medications approved for AUD. Pt educated regarding the [facility], would like to walk in on to initiate tx. Pt declines appt.
--- NOTE | 2021-10-09 11:32 | MHC.CARE ---
CARE Team attempts to make contact on 10/08 and 10/09. Messages were left requesting a return phone call.
== END 2021-10-07 20:42 | disposition home or self-care (01) ==
PROVIDERS: Emergency Provider Emergency Medicine
DX: F10.120 Alcohol abuse with intoxication, uncomplicated (principal); Y90.8 Blood alcohol level of 240 mg/100 ml or more; R45.1 Restlessness and agitation; F32.A Depression, unspecified; R45.851 Suicidal ideations; I10 Essential (primary) hypertension; R00.0 Tachycardia, unspecified; F17.200 Nicotine dependence, unspecified, uncomplicated; Z20.822 Contact with and (suspected) exposure to COVID-19
CPT/HCPCS: 36415; 80053; 80143; 80179; 80307; 81003; 81025; 82077; 85025; 87635; 96372; 99284; 99285; J2060

== ENCOUNTER 2021-12-18 15:17 | Emergency (ER) | payer MEDICAID, SELFPAY ==
[2021-12-18] VITALS (7 sets, daily range): BP systolic 119–161; BP diastolic 74–100; PULSE 103–129; RESP 18–20; TEMP 37.3; O2SAT 94–96; BMI 27.3
--- NOTE | ~2021-12-18 | CT_ITS ---
EXAMINATION: CT HEAD WITHOUT CONTRAST CLINICAL INFORMATION: Status post fall EtOH COMPARISON: CT head from 05/29/2019 TECHNIQUE: Contiguous axial imaging was performed from the skull base to vertex without intravenous administration of contrast. This CT examination was performed using dose optimization techniques as appropriate, variously including the following: *Automated exposure control *Adjustment of mA and/or kV according to patient size (this includes techniques or standardized protocols for targeted exams where dose is matched to indication/reason for exam; i.e. extremities or head) *Use of iterative reconstruction technique DLP: 1240 mGy-cm FINDINGS: Limited evaluation secondary to patient motion artifact. There is no evidence of acute intracranial hemorrhage or territorial infarction. No abnormal mass effect or midline shift is seen. Tolbert to white matter differentiation is well preserved. No extra-axial fluid collections are identified. The ventricles are normal in size. There is no abnormal attenuation within the brain parenchyma. The osseous structures and soft tissues are normal. The mastoid air cells and visualized portions of the paranasal sinuses are well aerated. CT/CT cervical spine wo con IMPRESSION: No acute intracranial pathology. EXAMINATION: Noncontrast CT scan of the cervical spine. INDICATION: Status post fall EtOH COMPARISON: None. TECHNIQUE: Helical, multidetector axial images were obtained from the occiput to the upper thorax. Coronal and sagittal reformats of the cervical spine were provided for interpretation. DLP: 531.83 mGy-cm FINDINGS: No acute fractures or dislocations of the cervical spine are seen. Straightening normal cervical curvature which may be secondary to patient positioning versus muscle spasm. Anatomic alignment and positioning of the vertebral bodies and posterior elements is noted. The atlantoaxial joint and craniovertebral articulations are normal without evidence of subluxation. There is no prevertebral soft tissue swelling. The thyroid gland and visualized portions of the lung apices and mediastinum are unremarkable. IMPRESSION: 1. No acute visible fracture or dislocation. 2. Straightening normal cervical curvature which may be secondary to patient positioning versus muscle spasm.
--- NOTE | 2021-12-18 16:09 | ED_ITS ---
HPI - Fall General Chief Complaint: Fall Stated Complaint: ETOH USE W/FALL,HIT HEAD,+CCOLLAR Time Seen by Provider: 12/18/21 15:48 Source: patient Mode of arrival: EMS Limitations: other (Intoxicated) History of Present Illness HPI Narrative: Patient comes to the emergency room complaining fall. Patient drank a lot of alcohol earlier today, being held. Patient states that she does not want to talk about it. Patient complaining of mild neck pain. Unclear if patient lost consciousness. Patient denies pain anywhere else. Patient is very intoxicated, unable to give a clear history Related Data Previous Rx's Medication Instructions Recorded chlordiazepoxide HCl 25 mg capsule 25 mg PO Q8H PRN alcohol 10/07/21 withdrawal #6 caps Allergies Allergy/AdvReac Type Severity Reaction Status Date / Time morphine [MORPHINE] Allergy Intermediate NAUSEA & Verified 12/18/21 15:43 VOMITING fluoxetine [FLUOXETINE] AdvReac Intermediate AGITATION, Verified 12/18/21 15:43 WEIGHT LOSS, MEMORY LOSS, SWEATING, THIRSTY Review of Systems Review of Systems: Constitutional : No Weight loss, No Fever, No Chills, No Night Sweats, No Fatigue, No Malaise ENT/Mouth : No Hearing loss, No Ear Pain, No Nasal Congestion, No Sinus Pain, No Hoarseness, No sore throat, No Rhinorrhea, No Swallowing Difficulty Eyes: No Eye Pain, No Swelling, No Redness, No Foreign Body, No Discharge, No Vision Changes Cardiovascular : No Chest Pain, No SOB, No Dyspnea on Exertion, No Orthopnea, No Edema, No Palpitations Respiratory : No Cough, No Sputum, No Wheezing, No Smoke Exposure, No Dyspnea Gastrointestinal : No Nausea, No Vomiting, No Diarrhea, No Constipation, No abdominal Pain, No Hematochezia, No Melena Genitourinary : no irregular bleeding, No Dysuria, No Urinary Frequency, No Hematuria, No Urinary Incontinence, No Urgency, No Flank Pain, No Urinary Flow Changes, No Hesitancy Musculoskeletal : No joint pain, No Myalgias, No Joint Swelling, complaining of mild neck pain Skin : No Skin Lesions, No rash Neuro : No Weakness, No Numbness, No Paresthesias, No Loss of Consciousness, No Dizziness, No Headache Psych : No Anxiety/Panic, No Depression, No SI/HI/AH/VH, admits to drinking alcohol heavily today Heme/Lymph: No Bruising, No Bleeding,No Lymphadenopathy Endocrine : No Polyuria, No Polydipsia, No Temperature Intolerance [facility] Past Medical History Medical History Alcohol abuse Social History Social History Alcohol intake: current Alcohol intake frequency: 3 or more drinks per day Patient Tobacco Use Status: Current everyday Tobacco user Advance Directives: No Advance Directives Information Provided: No Physical Exam Vital Signs: Vital Signs: Last Vital Signs Temp 99.2 F 12/18/21 15:41 Pulse 109 H 12/18/21 18:36 Resp 20 12/18/21 18:36 BP 134/92 H 12/18/21 18:36 Pulse Ox 95 12/18/21 18:36 O2 Del Method 12/18/21 18:36 BMI result Body Mass Index 27.3 Const: Other: Appearance: Alert. Oriented X3. No acute distress. Intoxicated Eyes: Both pupils dilated, 6 mm, Pupils equal, round and reactive to light. ENT: Pharynx normal. Neck: In C-spine precautions, mild pain to palpation in C-spine, no palpable step-offs CVS: Normal heart rate and rhythm. Pulses normal. Normal S1 and S2 Respiratory: No respiratory distress. Breath sounds normal. No Wheezing. No rales Abdomen: Soft and nontender. No rigidity. No distention. Skin: Skin warm and dry. Normal skin color. Normal skin turgor. Extremities: No lower extremity edema. No Lacerations. No Rash Neuro: Oriented X 3. No motor deficit. No sensory deficit. Moving all ext remities. No slurred speech. CN 2 through 12 grossly intact Psych: Intoxicated, belligerent, keeps trying to get out of bed and run out of the hospital Course Course Course Narrative: Head CT and cervical spine pending Patient is virtually becoming agitated, belligerent, trying to run out of the hospital, trying to punch and kick staff. At this time, patient is too intoxicated to make any decisions. Patient's mother called, states that the patient has been drinking a lot this week, told her mother that tomorrow for her birthday, she will kill herself. The mother reports that the patient has been complaining that she has not reached her goals in life and she is now going to be 36 years old, and wants to kill herself. According to the mother, the patient wants to do this by drinking herself to . At this time, patient is very intoxicated, belligerent and combative. Patient denies any suicidal ideation, but again, patient is intoxicated and cannot make any decisions at this moment. Patient became aggressive, we try to redirect the patient several times, patient gradually becoming more agitated and aggressive. patient had to be physically and chemically restrained. Patient was given 50 mg of diphenhydramine and 5 mg of Haldol. Patient is on a Section 12, patient is too intoxicated to give any clear history, Family relying the message that patient has been planning to kill herself tomorrow Patient is in the Behavioral Health pod. When patient becomes sober, she is to be evaluated by [facility]. Physician observation started at 17:20 MDM - Fall Lab Data Labs: Lab Results 12/18/21 Range/Units 18:58 COVID-19 (ALISTAIR) Negative (Negative) COVID-19 Clin Com See Note Critical Care Time Critical Care Time Critical Care Time: Yes Total Critical Care Time: 30 Attestation: I have personally provided critical care time. Time includes review of lab data, radiology results, discussion with consultants, and monitoring for potential decompensation. Intervention performed as documented. Discharge Plan Discharge Clinical Impression: Alcohol intoxication, Suicidal risk Patient Disposition: Still a Patient Prescriptions: No Action chlordiazepoxide HCl 25 mg capsule 25 mg PO Q8H PRN (Reason: alcohol withdrawal) Qty: 6 0RF
[2021-12-18] MEDS: Haloperidol Lactate 5 MG/ML VIAL IM (17:24)
[2021-12-18] MEDS: diphenhydrAMINE HCL 50 MG/ML VIAL IM (17:25)
--- NOTE | 2021-12-18 17:34 | PC.NURSE ---
Pts Mother's Phone Number is Boyfriends Number is
--- NOTE | 2021-12-18 18:17 | PC.NURSE ---
Addendum entered by Jim Wray 12/18/21 18:50: Dr. Ambrose aware of patients vital signs for hour after medication restraint. Original Note: Dr. Ambrose aware of patients pulse
[2021-12-18 19:43] LABS: COVID-19 Test Negative (Negative); IDNOW Serial# 55D5AD1C
[2021-12-18 20:08] LABS: Appearance Urine CLEAR; Color Urine YELLOW; Glucose Urine UA NEG (NEG); Leukocyte Esterase Urine NEG (NEG); Nitrite Urine NEG (NEG); PH 5.5 (5.0-8.0); Specific Gravity - Urine <= 1.005 (1.005-1.025); UACC Culture Trigger NO; Urine Blood 1+ (NEG); Urine Ketones NEG (NEG); Urine Protein NEG (NEG-TRACE)
[2021-12-18 20:09] LABS: MANUAL DIFF FLAG NO
[2021-12-18 20:12] LABS: Basophils Absolute Auto 0.1 X10*3/uL (0.0-0.2); Basophils Percent Auto 1.4 % (0-2); Eosinophils Percent Auto 0.2 % (0-4); Hematocrit 46.4 % (37.0-47.0); Hemoglobin 15.6 g/dl (12.0-16.0); Imm Gran Abs Auto 0.02 X10*3/uL (0.00-0.03); Imm Gran Pct Auto 0.2 % (0.0-0.4); Lymphocytes Absolute Auto 3.1 X10*3/uL (1.2-4.9); Lymphocytes Percent Auto 31.9 % (20-40); Mean Corpuscular HGB Conc 33.6 g/dl (31.0-35.0); Mean Corpuscular Hemoglobin 30.1 pg (27.0-33.0); Mean Corpuscular Volume 89.6 fL (80.0-98.0); Mean Platelet Volume 8.8 fL (9.4-12.3); Monocytes Absolute Auto 0.7 X10*3/uL (0.1-1.2); Monocytes Percent Auto 6.9 % (2-11); Neutrophils Absolute Auto 5.9 x10*3/uL (2.0-8.3); Neutrophils Percent Auto 59.4 % (45-73); Platelet Count 424 X10*3/uL (160-400); Red Blood Count 5.18 X10*6/uL (4.20-5.50); Red Cell Distribution Width 12.8 % (11.0-16.0); White Blood Count 9.9 X10*3/uL (4.8-10.8)
[2021-12-18 20:14] LABS: Mucus Urine 2+ /LPF; Squamous Epithelial Cell Urine 2+ /LPF
[2021-12-18 20:15] LABS: Bacteria Urine TRACE /LPF; Hyaline Casts Urine 0-2 /LPF; WBC Urine 0 /HPF (0-4)
[2021-12-18 20:22] LABS: Amphetamine Screen Urine Not Detected (Not Detect); Barbiturates, Urine Not Detected (Not Detect); Benzodiazepines Screen Urine Not Detected (Not Detect); Cannabinoid Screen Urine Not Detected (Not Detect); Cocaine Screen Urine Not Detected (Not Detect); Fentanyl, urine Not Detected (Not Detect); Opiate Screen Urine Not Detected (Not Detect); Phencyclidine Screen Urine Not Detected (Not Detect)
[2021-12-18 20:47] LABS: Alanine Aminotransferase 51 U/L (0-31); Albumin Level 4.8 g/dL (3.5-5.0); Alkaline Phosphatase 54 U/L (39-117); Anion Gap 22 (12-20); Aspartate Amino Transferase 61 U/L (5-31); Bilirubin Direct 0.2 mg/dL (0.0-0.5); Bilirubin Total 0.5 mg/dL (0.0-1.0); Blood Urea Nitrogen 8 mg/dL (9-16); Calcium 8.5 mg/dL (8.4-10.2); Carbon Dioxide 20 mmol/L (22-29); Chloride 110 mmol/L (96-108); Estimated Glomerular Filt Rate > 60; Ethanol 355 mg/dL; Glucose Random 110 mg/dL (60-115); Potassium 4.1 mmol/L (3.3-5.1); Sodium 148 mmol/L (135-145); Total Protein 8.1 g/dL (6.5-8.0)
[2021-12-18 20:53] LABS: HCG Quantitative < 2 mIU/mL
[2021-12-19 05:35] VITALS: BP 138/94; PULSE 102; RESP 16; TEMP 36.9; O2SAT 95
[2021-12-19] MEDS: LORazepam 1 MG TABLET PO (06:20)
--- NOTE | 2021-12-19 06:42 | PC.NURSE ---
Patient slept through the night, no distress observed/reported, Ativan 1 mg administered at 0620 for comfort, asymptomatic of withdrawal at this time, [facility] referral completed/confirmed/pending ETA, VSS, behavior appropriate and non concerning, will continue to monitor
--- NOTE | 2021-12-19 09:15 | MHC.CARE ---
[place] [facility] [place] with a BAL of 355. Pt today denies current SI/HI/AH/VH. Pt stated they use SI to bring her to the hospital binge drinks. Pt reports recent sobriety since her last ED visit. Pt is interested in the recovery team regarding outpatient resources. Pt open to information fro outpatient mental health providers. Pt provided with [facility] Crisis information. Dr. Faustin made aware.
--- NOTE | 2021-12-19 09:16 | PC.NURSE ---
ASSUMED CARE OF THIS PT 0700. PT SLEEPING AT THE TIME OF ASSUMING CARE. PT SEEN BY CARE TEAM, CLEARED FOR DISCHARGE, WAITING TO BE SEEN BY CERTIFIED PEDORTHOTIST. NO COMPLAINTS.
== END 2021-12-19 10:40 | disposition home or self-care (01) ==
PROVIDERS: Emergency Provider Emergency Medicine
DX: F10.120 Alcohol abuse with intoxication, uncomplicated (principal); Y90.8 Blood alcohol level of 240 mg/100 ml or more; R45.851 Suicidal ideations; F17.200 Nicotine dependence, unspecified, uncomplicated; R45.1 Restlessness and agitation; Z20.822 Contact with and (suspected) exposure to COVID-19; Z79.899 Other long term (current) drug therapy
CPT/HCPCS: 36415; 70450; 72125; 80048; 80076; 80307; 81001; 82077; 84702; 85025; 87635; 96372; 99284; 99285; J1200

== ENCOUNTER 2024-09-05 13:23 | Outpatient (AMB) | payer OTHER, SELFPAY ==
--- NOTE | 2024-09-05 13:31 | A.OFFPC_ITS ---
Vital Signs 09/05/24 13:34 Height 5 ft 7.32 in Weight 168 lb 8 oz BMI 26.1 BP 120/60 Blood Pressure Location Lt brachial Position Sitting Pulse 90 Pulse Source Pulse Oximeter Temp 97.3 F Temp Source Temporal Artery Scan Pulse Oximetry (%) 98 Oxygen Delivery Method Room Air Intake Visit Reasons: establish care Intake Note: Patient is a new patient here to establish care for Anxiety, ADHD, Hx HTN, GI issues. Transferring care from [facility]. Medical records have been requested and have not received. House Wirer Helper Required: No Contact Center Director: Not Required per policy Accompanied by: Self / Same As Patient Allergies morphine [MORPHINE] Allergy (Intermediate, Verified 09/05/24 13:49) NAUSEA & VOMITING fluoxetine [FLUOXETINE] Adverse Reaction (Intermediate, Verified 09/05/24 13:49) AGITATION, WEIGHT LOSS, MEMORY LOSS, SWEATING, THIRSTY Medication List - Last Reconciled 09/05/24 by Emmanuelle Maxwell PA-C no.167-folic acid-dha 400 mcg- 25 mg (One-A-Day ) tabs PO Tobacco use date assessed: 09/05/24 Dental Screening Dental Screen Date: 09/05/24 Did you have a dental visit in the last 12 months?: No Did you have a dental problem in the last 6 months where you did not have access to dental care?: No Was dental information given to patient?: Patient has dentist HPI establish care HPI Details 38 year old female coming to the office for the first time. Presenting for a routine and annual wellness examination. The patient is 15 weeks , with the estimated due date in early February. Notable past medical history includes anxiety, ADHD, and resolved hypertension. Sciatic pain has been experienced intermittently over the last year and a half due to occupational activities, impacting the left side. Following with Ob through [place] [facility] August 14 which was normal and plan to continue following with them. pap smears: UTD and have been normal in the past [facility] Medical History Hypertension Alcohol abuse Surgical History No pertinent past surgical history Family History Other Substance use disorder Social History Housing: Apartment Alcohol intake: former Patient Tobacco Use Status: Never used Tobacco e-Cigarette/Vaping Use: Never Used Second Hand Smoke Exposure: Yes service: No Current occupational status: employed Current occupation: Dental conservation assistant Cognitive needs: No Hearing needs: No Vision needs: Yes (Glasses) Questionnaire PHQ-9 Over the last 2 weeks, how often have you been bothered by any of the following problems? 1. Little interest or pleasure in doing things: not at all 2. Feeling down, depressed, or hopeless: not at all 3. Trouble falling or staying asleep, or sleeping too much: not at all 4. Feeling tired or having little energy: not at all 5. Poor appetite or overeating: not at all 6. Feeling bad about yourself - or that you are a failure or have let yourself or your family down: not at all 7. Trouble concentrating on things, such as reading the newspaper or watching television: not at all 8. Moving or speaking so slowly that other people could have noticed. Or the opposite - being so fidgety or restless that you have been moving around a lot more than usual: not at all 9. Thoughts that you would be better off or of hurting yourself in some way: not at all Total score: 0 Depression Screening Interpretation: Negative Depression Screening Done: Yes Source: Developed by Drs. Odell Rocha, Ansley Queen, Austen Tadeo and colleagues, with an educational natalie from [employer]. Thrive Questionnaire Date Thrive assessed: 09/05/24 I am a: Patient What is your living situation today?: I have a steady place to live Within the past 12 months, did the food you bought not last and you didn't have the money to get more?: Never true Within the past 12 months, did you worry whether your food would run out before you got money to buy more?: Never true Do you have trouble paying for medicines?: No Do you have trouble getting transportation to medical appointments?: No Do you have trouble paying your heating and electricity bill?: No Do you have trouble taking care of your child, family member or friend?: No Do you have trouble with day-to-day activities such as bathing, preparing meals, shopping, managing finances, etc.?: No Are you currently unemployed and looking for a job?: No Are you interested in more education?: No Please select the resources that you would like help with: None Currently or been in a relationship where the following occur: I choose not to answer THRIVE Score: 0 AUDIT C Alcohol Use Questionnaire (AUDIT-C) 1. How often do you have a drink containing alcohol?: Never Total Score: 0 DENVER-7 AMB Questionnaire DENVER-7 Date DENVER - 7 assessed: 09/05/24 Feeling nervous, anxious, or on edge: 0 = Not at all Not being able to stop or control worryin = Not at all Worrying too much about different things: 0 = Not at all Trouble relaxin = Not at all Being so restless that it is hard to sit still: 0 = Not at all Becoming easily annoyed or irritable: 0 = Not at all Feeling afraid as if something awful might happen: 0 = Not at all Total DENVER-7 score (0-4 normal; 5-9 mild; 10-14 moderate; 15-21 severe): 0 Source: Developed by Drs. Odell Rocha, Ansley Queen, Austen Tadeo and colleagues, with an educational natalie from [employer]. DENVER-7 Assessment Billing DENVER-7 Assessment Tool: DENVER-7 Assessment 27289 Review of Systems Const Denies body aches, Denies fatigue, Denies fever(s), Denies frequent falls, Denies headache(s) and Denies weakness Eyes Reports no additional complaints and Denies change in vision ENT Denies dysphagia, Denies dizziness, Denies headache(s) and Denies odynophagia Card Denies chest pain, Denies syncope, Denies leg edema, Denies lightheadedness and Denies dyspnea Resp Denies cough and Denies dyspnea GI Denies abdominal pain, Reports constipation (w/ ), Denies dysphagia, Denies dyspepsia, Denies diarrhea, Denies nausea, Denies odynophagia and Denies vomiting Details: urinary frequency Denies urinary frequency, Denies dysuria, Denies urinary hesitancy and Denies urinary urgency Musc Details: left sided sciatica pain w/ prolonged standing Denies back pain and Denies myalgias Skin/Breast Reports system reviewed and no additional complaints, except as documented Neuro Denies dizziness, Denies syncope, Denies frequent falls, Denies headache(s) and Denies weakness Psych Reports no additional complaints Endo Denies fatigue Physical exam (Primary Care) Tobacco/Smoking Status: Tobacco use Status Patient Tobacco Use Status Current everyday Tobacco 10/06/21 19:33 Depression Screening Interpretation: Negative Currently or been in a relationship where the following occur: I choose not to answer Const General: cooperative, healthy appearing, comfortable and no acute distress Orientation/consciousness: patient oriented x3 HENMT Head: Yes normocephalic Ears: hearing grossly normal bilaterally, external ears normal, TM's normal bilaterally and EAC's normal General nose exam: Normal external nose present Face and sinus: Yes normal facial exam and Yes sinuses nontender Mouth: Normal oral and palatal mucosa present and tongue normal Throat: Yes posterior oropharynx normal Eyes General: appearance normal, both eyes and all related structures Conjunctivae: conjunctivae normal Pupils: Equal, round and reactive pupils present EOM: EOMs intact bilaterally and No Nystagmus present Neck Neck: Yes normal visual inspection, Yes full ROM and Yes no lymphadenopathy Chest Chest palpation & inspection: normal inspection of the chest Resp Effort & Inspection: normal respiratory effort Auscultation: clear to auscultation bilaterally, no crackles, no rales, no rhonchi, no wheezes and breath sounds present Cardio Rate: regular rate Rhythm: regular rhythm Peripheral pulses: radial pulses present and dorsalis pedis present GI Inspection: Yes normal to inspection and No Abdominal wall edema Palpation (GI): Soft to palpation, not firm and nontender Auscultation: normal bowel sounds Rectal Exam - Female: deferred General: Yes no CVA tenderness Back/Spine/Pelvis Back: no CVA tenderness Skin General skin exam: no rashes or lesions noted Neuro General: patient oriented x3 Cranial nerves: Yes Equal, round and reactive pupils present, Yes Midline tongue present, Yes Ability to bilaterally elevate shoulders present and No Nystagmus present Gait exam (Neuro): Normal gait present Extrem General: Yes normal to inspection, Yes full ROM, No no pedal edema and No edema Psych Speech and movement: Normal speech and movement present Affect: normal affect Insight: Good insight present (Psych) Judgement: Good judgement present (Psych) Coding Level of Care Code New Pt Prev Care 18-39yr([id number] Diagnoses ADHD F90.9 Anxiety F41.9 Z34.90 Left sided sciatica M54.32 Annual physical exam Z00.00 Additional Codes DENVER-7 Assessment Billing - DENVER-7 Assessment Tool: DENVER-7 Assessment 88666 ([id number]) Assessment & Plan Assessment & Plan (1) ADHD: Code(s): F90.9 - Attention-deficit hyperactivity disorder, unspecified type Category: Medical Plan: Managed through behavioral modification. (2) Anxiety: Code(s): F41.9 - Anxiety disorder, unspecified Category: Medical Plan: Feels anxiety is well managed without the use of counseling or medical management at this time. Advised to reach out if this changes. (3) : Comment: Due date 02/2025 Code(s): Z34.90 - Encounter for supervision of normal , unspecified, unspecified trimester Category: Medical Plan: Patient is currently following with [facility]ida [facility]re[facility] [place] and has a due date of 02/17/2025. She will likely be relying on her OB for care throughout the next year and plan to follow up at next annual exam. She is receiving blood work through her Ob as well (4) Left sided sciatica: Code(s): M54.32 - Sciatica, left side Category: Medical Plan: More consistent with piriformis syndrome recommend gentle stretching, supportive shoes, heating pad as needed and Tylenol as needed for pain. Can consider referral to physical therapy if symptoms persist. (5) Annual physical exam: Code(s): Z00.00 - Encounter for general adult medical examination without abnormal findings Category: Medical Plan: Patient is up-to-date on all recommended routine screenings and vaccinations for her age. Blood work is up-to-date through her OB and has been reviewed by them. Plan to obtain these records as well. Healthy diet and regular exercise is encouraged. Follow up in 1 year or sooner if new problems arise. Plan I discussed ongoing and specific care procedures under her current obstetric care team, emphasizing adherence to the prescribed vitamin regimen. For her sciatic discomfort, I recommended engaging in targeted exercises and considering acetaminophen if necessary. The importance of monitoring fluid intake and reducing sodium was explained to manage fluid retention commonly associated with . The patient's active responsibility in overall wellness was reiterated, with plans set for follow-up. This note was constructed using voice recognition software. While every effort has been made to ensure accuracy and marketing database analyst, still areas may have been i ncluded sometimes these areas may affect the content or meeting of the given symptoms. Total time spent caring for the patient today was 30 minutes. This includes time spent before the visit reviewing the chart, time spent during the visit, and time spent after the visit and documentation. Patient was informed and verbally consented to the use of an ambient scribe for clinic note documentation during this visit.
[2024-09-05 13:34] VITALS: BP 120/60; PULSE 90; TEMP 36.3; O2SAT 98; BMI 26.1
== END 2024-09-05 14:05 | disposition home or self-care (01) ==
LOC: HO.HMCH 13:24
DX: F90.9 Attention-deficit hyperactivity disorder, unspecified type (principal); F41.9 Anxiety disorder, unspecified; Z34.90 Encounter for supervision of normal pregnancy, unspecified, unspecified trimester; M54.32 Sciatica, left side; Z00.00 Encounter for general adult medical examination without abnormal findings

== ENCOUNTER → 2024-09-05 13:23 | Outpatient (BNVA) | payer OTHER, SELFPAY | DX: Z00.00 Encounter for general adult medical examination without abnormal findings (principal); O99.342 Other mental disorders complicating pregnancy, second trimester; F90.9 Attention-deficit hyperactivity disorder, unspecified type; F41.9 Anxiety disorder, unspecified; O99.891 Other specified diseases and conditions complicating pregnancy; M54.32 Sciatica, left side; Z3A.15 15 weeks gestation of pregnancy | CPT/HCPCS: 96127 ==